=== PATIENT | female | born 1940 | race Caucasian/White ===

== ENCOUNTER 2020-04-25 13:23 | Observation (INO) | payer OTHER ==
--- NOTE | 2020-04-25 13:34 | ED.PDOC ---
History of Present Illness - General Chief Complaint: Trauma Stated Complaint: s/p fall yesterday at NH Time Seen by Provider: 04/25/20 13:25 Source: patient, RN notes reviewed, Vital Signs reviewed, EMS notes reviewed, EMS, [facility] records, old records - History of Present Illness Initial Comments: 79 yo F comes in after she tripped and fell onto right side. did not hit head, had xray done in [facility] found to have right hip fracture. unable to get history from patient, not oriented to self. this is baseline per penitentiary. Allergies/Adverse Reactions: Allergies NO KNOWN ALLERGY Allergy (Verified 04/25/20 15:40) Review of Systems - Review of Systems Unable to Obtain Due To: dementia Past Medical History (General) - Patient Medical History Hx Stroke: Yes Hx Dementia: Yes Hx Asthma: No Hx of COPD: No Hx Cardiac Disorders: No Hx Hypertension: Yes Hx Diabetes: No Hx Renal Disease: Yes Surgical History: other - unkown Physical Exam - Physical Exam General Appearance: Alert, Comfortable, No apparent distress, Well Developed, Well Groomed, Well Hydrated, Well Nourished Head Injury: no evidence of injury Eye Exam: bilateral normal ENT Exam: hearing grossly normal, no evidence of ENT injury, no dental injury Peripheral Pulses: radial,right: 2+, radial,left: 2+, dorsalis pedis,right: 2+, dorsalis pedis,left: 2+ Cardiovascular/Respiratory: regular rate, rhythm, no M/R/G, normal peripheral pulses, no JVD, normal breath sounds, no respiratory distress Gastrointestinal/Abdominal: normal bowel sounds, non tender, soft, no organomegaly, no pulsatile mass Back Exam: normal inspection, no CVA tenderness, no vertebral tenderness Extremity Exam: non-tender, no pedal edema, pelvis stable, other - right hip pain Neurologic: alert, disoriented x 3 Skin Exam: normal color, warm/dry - [place] Coma Score Best Eye Response (Paulo): (4) open spontaneously Best Verbal Response (Paulo): (4) confused conversation - baseline not oriented to self Best Motor Response ([place]): (6) obeys commands Paulo Total: 14 Progress - Progress Progress: 04/25/20 16:14 right hip xRAY shows Osteopenia. Moderately displaced acute impacted fracture of the right femoral neck. No evidence of dislocation. In the proximal femoral metaphysis, there is somewhat irregular cortical thinning and decreased mineralization. A lucent lesion from primary or secondary neoplasm versus focal osteopenia may have this appearance. discussed with Dr. Cancino, recommend MRI for further evaluation of femur. Also states patient not candidate for hip re placement due to comorbidities, and advanced dementia. 04/25/20 16:58 The data reviewed when caring for this patient included: nurse notes, prior records, etc. The history and assessments from nurses notes were reviewed and considered, and the patient's home medication list was also reviewed and considered. My assessment and the results of testing completed here in the ED were discussed with the patient. She was transferred to the floor in stable condition. - Consult/PCP Time Called: 02:50 Consult/PCP: jaquan Cancino Departure - Departure Clinical Impression: Closed right hip fracture Qualifiers: Encounter type: initial encounter Qualified Code(s): S72.001A - Fracture of unspecified part of neck of right femur, initial encounter for closed fracture ICD-10 Supporting Text: metastatic lesion. dementia Disposition: Admit Patient Departure Forms: ED Discharge - Pt. Copy, Patient Portal Self Enrollment Instructions: DI for Trauma Decision To Admit - Decistion To Admit Decision to Admit Date: 04/25/20 Decision to Admit Time: 14:30
--- NOTE | 2020-04-25 14:39 | RAD ---
EXAM DESCRIPTION: Hip,Right 2 Views x-ray CLINICAL HISTORY: 79 yearsFemale, fracture COMPARISON: None. IMPRESSION: Osteopenia. Moderately displaced acute impacted fracture of the right femoral neck. No evidence of dislocation. In the proximal femoral metaphysis, there is somewhat irregular cortical thinning and decreased mineralization. A lucent lesion from primary or secondary neoplasm versus focal osteopenia may have this appearance. Recommend whole-body nuclear medicine bone scan prior to treatment of the femoral neck fracture to exclude a pathologic fracture from metastatic disease or primary neoplasm. Electronically signed by: Krzysztof Isaac MD 04/25/2020 2:38 PM [facility]
--- NOTE | 2020-04-25 14:47 | CT ---
EXAM DESCRIPTION: CT-Head CLINICAL HISTORY: fall COMPARISON: None available TECHNIQUE: Multiple axial images of the head without contrast. Multiplanar reformatted images. This exam was performed according to our departmental dose-optimization program, which includes automated exposure control, adjustment of the mA and/or kV according to patient size and/or use of iterative reconstruction technique. FINDINGS: Somewhat limited evaluation as the vertex is not fully included on the [id number]. Image quality is also moderately degraded by motion artifact. No visualized intracranial hemorrhage, mass effect, or large territory infarction. Moderate generalized volume loss. Moderate patchy supratentorial white matter hypodensities. There are no abnormal extra-axial fluid collections. Calcific plaque in the visualized arteries. There is no acute calvarial defect. The visualized paranasal sinuses and the mastoids are clear. IMPRESSION: 1. Limited evaluation as the vertex is not fully included on the [id number] as well as reduced image quality from motion artifact. No visualized acute intracranial abnormality. If there is concern for an acute or subacute infarct, consider follow-up MRI. 2. Advanced senescent changes. Electronically signed by: Krzysztof Isaac MD 04/25/2020 2:45 PM [facility] [id number]
--- NOTE | 2020-04-25 20:11 | HP ---
SUPERVISING PHYSICIAN: Josue Pineda MD CHIEF COMPLAINT: Right hip pain. HISTORY OF PRESENT ILLNESS: This is an 79-year-old female patient who lives at [facility]. She just recently moved in there. She tripped and fell at [facility] and there was some pain to the right side. She was sent to the Emergency Room. Her initial vital signs showed temperature 98.4, heart rate 87, blood pressure 114/63, respiratory rate 20, O2 saturation 93% on room air. Lab studies were done. WBCs were 15,300, hemoglobin 10, hematocrit 30. Electrolytes were basically within normal limits. Urinalysis was unremarkable. Right hip x-ray showed osteopenia, moderately displaced acute impacted fracture of the right femoral neck. No evidence of dislocation in the proximal femoral metaphysis. There is somewhat irregular cortical thinning and decreased mineralization, a lucent lesion from primary or secondary neoplasm versus focal osteopenia may have this appearance. Recommend a whole body nuclear medicine bone scan prior to treatment of the femoral neck fracture to exclude a pathologic fracture from metastatic disease or primary neoplasm. Her head CT showed 1) Limited evaluation as the vertex is not fully included on the field of view as well as reduced image quality from motion artifact. No visualized acute intracranial abnormality. 2) Advanced senescent changes. The ER physician called Dr. Cancino in regards to the hip fracture. I spoke with Dr. Cancino and he felt that due to the pathologic fracture and most likely metastatic disease, no surgical intervention would benefit the patient. He recommended admission to the hospital for pain control. The patient was given Dilaudid in the ER. She is a very poor historian and there is very little information on her chart. The patient is unable to answer much questioning. She was admitted to the hospital in stable condition. PAST MEDICAL HISTORY: Unknown. PAST SURGICAL HISTORY: Unknown. OUTPATIENT MEDICATIONS: Awaiting verification and input into EMR. ALLERGIES: AMOXICILLIN. SOCIAL HISTORY: Unknown. REVIEW OF SYSTEMS: Unable to complete due to the patient's mental status. PHYSICAL EXAMINATION: VITAL SIGNS: Temperature 97.4, heart rate 83, blood pressure 127/81, respiratory rate 14, O2 saturation 94% on room air. GENERAL: This is an 79-year-old female patient who is lying in her hospital bed. She is pleasant, but has advanced dementia. HEENT: Normocephalic, atraumatic. Pupils are equal and reactive. Oropharynx is clear. NECK: Supple, full range of motion. RESPIRATORY: Essentially clear to auscultation bilaterally. CARDIOVASCULAR: Regular rate and rhythm. GASTROINTESTINAL: Abdomen is soft, nondistended, nontender. Bowel sounds are positive. EXTREMITIES: Tender to palpation along the lateral right hip. Bilateral pedal pulses are palpable at +2. NEUROLOGIC: Awake, alert, but disoriented times three. LABORATORY: Labs and films are as per history of present illness. IMPRESSION: 1. Right hip fracture, most likely pathologic due to metastatic disease. 2. Advanced dementia. PLAN: The patient has been placed in observation. I have ordered Dilaudid for pain control. She will have proton pump inhibitor for ulcer prophylaxis. In the morning, I will do a scan to see if we can find the source of her metastatic disease. I consulted [facility] so we can locate family. We will try to get as much information as [facility] as we can get. Until that time, we will keep her comfortable. It would be beneficial to get a hospice referral depending on how advanced her metastatic disease is. I ordered lab as well as those scans for in the morning. A whole body scan was ordered per the ER physician. We will monitor and treat as needed. [facility][id number] [facility]
[2020-04-25] MEDS ORDERED: fentaNYL CITRATE INJ 50 MCG/ML 2 ML AMP IV ONE (20:35)
[2020-04-25] MEDS ORDERED: SODIUM CHLORIDE 0.9% (FLUSH) 10 ML SYG IV PRN (22:20)
[2020-04-25] MEDS ORDERED: ONDANSETRON INJ 4 MG/2 ML VIAL IV PRN (22:20)
[2020-04-25] MEDS ORDERED: HYDROmorphone HCL INJ 2 MG/ML VIAL IV PRN (22:29)
[2020-04-25] MEDS ORDERED: IV SET AND CAP CHANGE INJ INJ SCH (22:30)
[2020-04-26] MEDS: PANTOPRAZOLE SODIUM IV 40 MG VIAL IV SCH (05:42)
--- NOTE | 2020-04-26 09:33 | CT ---
EXAM DESCRIPTION: Chest w/o Contrast CLINICAL HISTORY: 79 years Female, source of metastatic disease COMPARISON: Right femur dated April 2020 TECHNIQUE: Transaxial images were obtained without intravenous contrast media. Sagittal and coronal reconstruction was performed.This exam was performed according to our departmental dose-optimization program, which includes automated exposure control, adjustment of the mA and/or kV according to patient size and/or use of iterative reconstruction technique. FINDINGS: The thyroid is normal in appearance. No pathologic axillary adenopathy is observed. No hilar or mediastinal adenopathy is seen. A small left pleural effusion is noted. Minimal right basilar atelectasis is observed. No adrenal masses are detected. A left lower lobe lung mass is observed adjacent to the aorta measuring 3.16 cm in diameter. Coronary artery calcification is noted. Minimal right basilar atelectatic type lung disease is observed. Degenerative changes are seen throughout the thoracic spine. IMPRESSION: 1. A superior segment left lower lobe 3.16 cm in diameter pulmonary mass is observed and felt represent evidence of a lung neoplasm. There is an associated small left pleural effusion. Electronically signed by: Bijan Yang MD 04/26/2020 9:32 AM [facility]
--- NOTE | 2020-04-26 09:40 | CT ---
EXAM DESCRIPTION: Abdoment/Pelvis w/o Contrast CLINICAL HISTORY: 79 years Female, source of metastatic disease COMPARISON: Right hip dated 25 April 2020 TECHNIQUE: Transaxial images were obtained without intravenous or oral contrast media. Sagittal and coronal reconstruction was performed.This exam was performed according to our departmental dose-optimization program, which includes automated exposure control, adjustment of the mA and/or kV according to patient size and/or use of iterative reconstruction technique. FINDINGS: Small left pleural effusion is noted. Minimal right basilar atelectasis is seen. The liver and spleen are unremarkable. No biliary ductal dilatation is observed. The exam does suggest sludge within the gallbladder. Further evaluation with sonography might be considered. No adrenal masses are detected. The pancreas is normal in appearance. Calcific atherosclerotic changes observed in the abdominal aorta without evidence of aneurysmal dilatation. No free fluid is observed in the pelvis. The uterus and adnexa are unremarkable. No inguinal region and modality is seen. The bladder is drained by Fam catheter. Degenerative changes are observed throughout the lumbar spine. There is convexity of the spine to the left. There is evidence of prior vertebral body augmentation at the L1 and L2 levels. A low density spherical defect is observed in the vertebral body of T12 suspicious for metastatic neoplasm. The exam also demonstrates evidence of a fracture of the right femoral neck which appears to be pathologic in nature. 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 The exam also demonstrates marked marrow replacement in the L1 vertebral body suggesting that this also was pathologic in nature. IMPRESSION: 1. Small left pleural effusion. 2. Sludge versus stones in the gallbladder. Further evaluation with sonography might be considered. 3. Examination demonstrates findings in L1 and T12 suspicious for metastatic neoplasm. 4. A pathologic fracture of the right hip is observed. Electronically signed by: Bijan Yang MD 04/26/2020 9:38 AM [facility]
[2020-04-26] MEDS: APIXABAN 5 MG TAB PO SCH (19:36)
[2020-04-26] MEDS: SODIUM CHLORIDE 0.9% (FLUSH) 10 ML SYG IV SCH ×2 (19:36→21:00)
[2020-04-27] MEDS: PANTOPRAZOLE SODIUM IV 40 MG VIAL IV SCH (06:22)
[2020-04-27] MEDS: APIXABAN 5 MG TAB PO SCH (10:00)
[2020-04-27 14:57] VITALS: BP 122/64; TEMP 98.8; O2SAT 94
[2020-04-27] MEDS: SODIUM CHLORIDE 0.9% (FLUSH) 10 ML SYG IV SCH (15:26)
--- NOTE | 2020-05-30 14:25 | DS ---
SUPERVISING PHYSICIAN: Josue Pineda MD DISCHARGE DIAGNOSIS: 1. Right hip fracture, most likely pathologic due to metastatic disease. 2. Advanced dementia. HISTORY OF PRESENT ILLNESS: This is an 79-year-old female patient who lives at [facility]. She just recently moved in there. At [facility], she tripped and fell and had some pain to the right side. She was sent to the Emergency Room. Her vital signs were stable. Lab studies were done. WBCs were elevated at 15,300. Right hip x-ray showed osteopenia, moderately displaced acute impacted fracture of the right femoral neck. No evidence of dislocation in the proximal femoral metaphysis. There was somewhat irregular cortical thinning and decreased mineralization, a lucent lesion from primary or secondary neoplasm versus focal osteopenia may have this appearance. Recommend a whole body nuclear medicine bone scan prior to treatment of the femoral neck fracture to exclude a pathologic fracture from metastatic disease or primary neoplasm. Her head CT showed advanced senescent changes. Dr. Cancino was contacted for recommendations and he felt that due to the pathologic fracture and most likely from metastatic disease, there would be no surgical intervention that would benefit the patient. He recommended admission to the hospital for pain control as well as to contact family member and to discuss her poor proximally based and possible code status change. She would probably benefit mostly from hospice. The patient was unable to answer many questions, so she was placed in observation in the hospital. HOSPITAL COURSE: The patient had Dilaudid for pain control. She was also started on a proton pump inhibitor for ulcer prophylaxis. Her family was consulted and after reviewing her testing and her poor outcome, her daughter decided to have hospice. [facility] was consulted. They called the patient's daughter. The patient will be discharged to [facility] under [facility]. LABORATORY: WBCs on admission were 15,300. Followup lab showed 11,300. Hemoglobin and hematocrit at 9.2 and 26.8. Electrolytes are basically within normal limits. Urinalysis was unremarkable. RADIOLOGY: Her CT of the chest showed a superior segment left lower lobe 3.6 cm in diameter pulmonary mass observed and felt to represent evidence of a lung neoplasm. There is an associated small left pleural effusion. Her abdomen and pelvis CT showed 1) Small left pleural effusion. 2) Sludge versus stones in the gallbladder. Further evaluation with sonography might be considered. 3) Examination demonstrates findings in L1 and T12 suspicious for metastatic neoplasm. 4) Pathologic fracture of the right hip is observed. DISCHARGE PLAN: The patient will e discharged to [facility] to [facility]. Her previous medications have been discontinued and her medications will be per [facility] routine orders. [facility] should answer all questions for any problems after discharge. DISCHARGE MEDICATIONS: None. [facility][id number] [facility]
== END 2020-04-27 12:15 | disposition hospice, inpatient (51) ==
LOC: ER 13:23 → MS 20:10
PROVIDERS: ADMIT Nurse Practitioner Acute Care; ATTEND Nurse Practitioner Acute Care
DX: S72.001A Fracture of unspecified part of neck of right femur, initial encounter for closed fracture (principal); F03.90 Unspecified dementia, unspecified severity, without behavioral disturbance, psychotic disturbance, mood disturbance, and anxiety; I10 Essential (primary) hypertension; M85.88 Other specified disorders of bone density and structure, other site; J90 Pleural effusion, not elsewhere classified; R91.8 Other nonspecific abnormal finding of lung field; W01.0XXA Fall on same level from slipping, tripping and stumbling without subsequent striking against object, initial encounter; Y92.129 Unspecified place in nursing home as the place of occurrence of the external cause; Z86.73 Personal history of transient ischemic attack (TIA), and cerebral infarction without residual deficits; Z88.0 Allergy status to penicillin; Z20.828 Contact with and (suspected) exposure to other viral communicable diseases
CPT/HCPCS: 96374; 96375 ×2; 96376; J3010; J1170; A4216; 80053 ×2; 36415 ×3; 81001; 85025 ×2; 85730; 85610; 73502; 70450; 71250; 74176; 94760 ×3; 99285; G0378; 87635

== ENCOUNTER → 2020-07-13 | Outpatient (CLI) | payer OTHER | LOC: GOCC 18:13 | PROVIDERS: ATTEND Family Medicine | DX: N39.0 Urinary tract infection, site not specified (principal) ==